=== PATIENT | male | born 1960 | race Caucasian/White ===

== ENCOUNTER 2018-06-08 21:47 | Emergency (ER) | payer BC, OTHER ==
[2018-06-08 22:55] LABS: CHLORIDE,CL 106 mmol/L (98-107); SODIUM,NA 140 mmol/L (136-145)
[2018-06-08 22:57] LABS: ANION GAP 13.3 mmol/L (10-20)
[2018-06-08] MEDS ORDERED: Take Home: Cephalexin 500 MG Cap, 4 Cap Pack PO ONE (22:59)
--- NOTE | 2018-06-09 01:36 | EDM.PDOC ---
ED HPI GENERAL MEDICAL PROBLEM - General Chief Complaint: Lower Extremity Injury/Pain Stated Complaint: left lower leg swelling Time Seen by Provider: 06/08/18 22:10 Source of Information: Reports: Patient, Family History Limitations: Reports: No Limitations - History of Present Illness INITIAL COMMENTS - FREE TEXT/NARRATIVE: Pt. is currently being treated for a DVT of the L lower extremity. States that he is currently anticoagulated with eliquis. states that she thinks his L lower leg is larger than normal and is worried he "threw a clot". Pt. offers no complaints such as chest pain or shortness of breath. He feels it may be mildly increased in size from baseline. He has noted some erythema to the extremity. States that it is warm to touch. No duskiness, pallor, or paresthesia. Location: Reports: Lower Extremity, Left Quality: Reports: Pressure Associated Symptoms: Reports: Rash - Related Data Allergies Allergy/AdvReac Type Severity Reaction Status Date / Time No Known Allergies Allergy Verified 06/08/18 21:57 Home Meds: Home Meds Apixaban [Eliquis] 2 tab PO BID 06/08/18 [History] Past Medical History - Past Health History Medical/Surgical History: Denies Medical/Surgical History - Past Surgical History Musculoskeletal Surgical History: Reports: Shoulder Surgery Social & Family History - Tobacco Use Smoking Status *Q: Never Smoker Review of Systems - Review of Systems Review Of Systems: See Below Constitutional: Reports: No Symptoms Respiratory: Reports: No Symptoms Cardiovascular: Reports: No Symptoms GI/Abdominal: Reports: No Symptoms Genitourinary: Reports: No Symptoms Musculoskeletal: Reports: Other (see hpi) Skin: Reports: Rash, Erythema Neurological: Reports: No Symptoms Psychiatric: Reports: No Symptoms ED EXAM, GENERAL - Physical Exam Exam: See Below Exam Limited By: No Limitations General Appearance: Alert, WD/WN, No Apparent Distress Respiratory/Chest: No Respiratory Distress, Lungs Clear, Normal Breath Sounds, No Accessory Muscle Use, Chest Non-Tender Cardiovascular: Normal Peripheral Pulses, Regular Rate, Rhythm, No Edema, No Gallop, No JVD, No Murmur, No Rub Peripheral Pulses: 3+: Dorsalis Pedis (L), Dorsalis Pedis (R) Extremities: Increased Warmth, Redness, Other (edema and fullness to LLE) Neurological: Alert, Oriented, CN II-XII Intact, Normal Cognition, Normal Gait, Normal Reflexes, No Motor/Sensory Deficits Course - Vital Signs Last Recorded V/S: Last Vital Signs Temp 36.1 C 06/08/18 21:58 Pulse 65 06/08/18 21:58 Resp 18 06/08/18 21:58 BP 139/89 06/08/18 21:58 Pulse Ox 93 L 06/08/18 21:58 - Orders/Labs/Meds Labs: Laboratory Tests 06/08/18 06/08/18 Range/Units 22:35 22:35 WBC 5.8 (4.0-10.0) x10^3/uL RBC 5.10 (4.5-6.0) x10^6/uL Hgb 15.8 (14.0-18.0) g/dL Hct 44.8 (40.0-52.0) % MCV 87.8 (78.0-93.0) fL MCH 31.0 (26.0-32.0) pg MCHC 35.3 (32.0-36.0) g/dL RDW Coeff of Giovanny 14.2 (10.0-15.0) % Plt Count 238 (130-400) x10^3/uL Neut % (Auto) 51.0 (50.0-80.0) % Lymph % (Auto) 31.6 (25.0-50.0) % [place] % (Auto) 9.8 (2.0-11.0) % Eos % (Auto) 6.9 H (0.0-4.0) % Baso % (Auto) 0.7 (0.2-1.2) % Sodium 140 (136-145) mmol/L Potassium 3.3 L (3.5-5.1) mmol/L Chloride 106 (98-107) mmol/L Carbon Dioxide 24 (21-32) mmol/L Anion Gap 13.3 (10-20) mmol/L BUN 16 (7-18) mg/dL Creatinine 1.2 (0.70-1.30) mg/dL Est Cr Clr Drug Dosing TNP Estimated GFR (MDRD) > 60 Glucose 112 H (74-106) mg/dL Calcium 8.7 (8.5-10.1) mg/dL C-Reactive Protein < 0.2 (<=0.9) mg/dL Meds: Medications Discontinued Medications Generic Name Dose Route Start Last Admin Trade Name Lloyd PRN Reason Stop Dose Admin Cephalexin 1 packet 06/08/18 22:59 06/08/18 23:06 Take Home: Cephalexin 500 Mg, 4 Cap Pack PO 06/08/18 23:00 1 packet ONETIME ONE Administration Departure - Departure Time of Disposition: 23:11 Disposition: Home, Self-Care 01 Clinical Impression: Cellulitis - Discharge Information Instructions: Cellulitis, Adult, [id number] Referrals: Katelyn Navarro MD [Primary Care Provider] - Forms: ED Department Discharge Additional Instructions: Keflex 500mg 1 cap 4 times per day for 10 days. Return to ER if any chest pain or shortness of breath. Follow-up in clinic in 7-10 days for recheck. - Assessment/Plan Plan: Keflex 500mg 1 cap 4 times per day for 10 days. Return to ER if any chest pain or shortness of breath. Follow-up in clinic in 7-10 days for recheck.
== END 2018-06-08 23:11 | disposition home or self-care (01) ==
LOC: VM.ED 21:47
DX: L03.116 Cellulitis of left lower limb (principal)
CPT/HCPCS: 36415; 80048; 85025; 86140; 99283; A9270-GY

== ENCOUNTER 2021-05-28 08:46 | Day surgery (SDC) | payer OTHER ==
[2021-05-28] MEDS: Lactated Ringers 1,000 ML IV SCH (09:06)
[2021-05-28] MEDS ORDERED: fentaNYL 100 MCG/2 ML SDV ONE (10:08)
[2021-05-28] MEDS ORDERED: Propofol 200 MG/20 ML SDV ONE ×2 (10:08→11:27)
--- NOTE | 2021-05-28 13:13 | OR ---
DATE OF SURGERY: 05/28/2021. REFERRING PROVIDER: Katelyn Navarro MD PRE-OPERATIVE DIAGNOSIS: History of bloody stools on 2 separate occasions. This is the patient's first colonoscopy. He denies any known family history of colon cancer. The patient is on Eliquis for clotting disorder which has caused history of deep venous thrombosis. He has held the Eliquis for 2 days. He is also on low-dose aspirin which has been held for 7 days. POST-OPERATIVE DIAGNOSES: 1. Total of 6 polyps removed, all using cold forceps. a. 2 mm polyp at 80 cm. b. 2 mm polyp at 75 cm. c. 2 mm polyp x2 at 20 cm. d. 4 mm polyp and 2 mm polyp at 15 cm. 2. Mild hemorrhoids, not acutely inflamed. 3. Normal-appearing distal ileum. PROCEDURE: Colonoscopy with polypectomy x6, all using cold forceps. SURGEON: Filemon Sky M.D. ANESTHESIA: Monitored anesthesia care. BOWEL PREP: Good. Katia is a 60-year-old male who was brought to the endoscopy suite after discussing risks and benefits of the procedure. Informed consent was obtained for conscious sedation and colonoscopy with or without biopsy and/or polypectomy. We also discussed possibility of missed lesions. Pre-procedure exam was unremarkable. IV, oxygen, and monitors were placed. The patient was placed in the left lateral decubitus position. Sedation was administered and a digital rectal exam was performed and unremarkable. Colonoscope was passed into the rectum and slowly advanced all the way to the cecum. Cecum was viewed and photographed. Ileocecal valve was intubated and distal ileum was normal in appearance. The colonoscope was slowly withdrawn and the mucosa was closed observed in a direct circumferential manner. The ascending colon was remarkable for 2 mm polyps at 80 cm and 75 cm, both removed using cold forceps. The transverse colon was unremarkable. The descending colon was unremarkable. The sigmoid colon was remarkable for 2 mm polyp x2 at 20 cm and 4 mm and 2 mm polyps at 15 cm, all removed using cold forceps. Retroflexion was performed and rectal mucosa was remarkable for some mild hemorrhoids, not acutely inflamed. Scope was removed. The patient tolerated the procedure well. The patient was monitored until that baseline status. Discharge instructions were reviewed and the patient was discharged in good condition. COMPLICATIONS: None. TOTAL TIME: 22 minutes. ESTIMATED BLOOD LOSS: 1 to 2 mL. RECOMMENDATIONS/FOLLOW-UP: We will await results of path report to determine ideal followup interval. I will have the patient hold his Eliquis for today and tomorrow, then can resume on Tuesday. We also hold his aspirin for 3 days. This is to limit any chance of bleeding from the polypectomy sites. I would like to kindly thank Dr. Navarro for this referral. DMB: 05/28/2021 12:10:23 MODL: 05/28/2021 12:35:07 /[id number]
== END 2021-05-28 12:37 | disposition home or self-care (01) ==
LOC: VM.SDS 08:46
PROVIDERS: ATTEND Family Medicine
DX: D12.2 Benign neoplasm of ascending colon (principal); D12.5 Benign neoplasm of sigmoid colon; K21.9 Gastro-esophageal reflux disease without esophagitis; K64.9 Unspecified hemorrhoids; Z98.890 Other specified postprocedural states; Z79.82 Long term (current) use of aspirin; Z79.899 Other long term (current) drug therapy
CPT/HCPCS: 00811; J2704; J3010; J7120